=== PATIENT | male | born 1975 | race American Indian/Alaskan Native ===

== ENCOUNTER 2020-07-28 20:35 | Emergency (ER) | payer SELFPAY ==
--- NOTE | 2020-07-29 01:57 | Emergency Department Report ---
- General Chief complaint: Extremity Injury, Upper Stated complaint: RT THUMB INFECTION Time Seen by Provider: 07/29/20 01:52 Source: patient Mode of arrival: Ambulatory Limitations: No Limitations - History of Present Illness Initial comments: The patient was evaluated in the emergency department for symptoms described in the history of present illness. He/she was evaluated in the context of the global COVID-19 pandemic, which necessitated consideration that the patient might be at risk for infection with the virus that causes COVID-19. Institutional protocols and algorithms that pertain to the evaluation of patients at risk for COVID-19 are in a state of rapid change based on information released by regulatory bodies including the CDC and federal and state organizations. These policies and algorithms were followed during the patient's care in the emergency department. Please note that these policies, procedures and recommendations changed on a rapid basis. 45-year-old -[place] male presents to the emergency room for right thumb swelling and pain with drainage x1 week. Patient states his been self I&D with razor. Patient states his been drawing back purulent discharge. Patient states is been taken ibuprofen which he feels does not help and is taking tramadol and he does not like the way it makes him feel. Patient denies any past medical history currently takes no medications besides vitamins and has no primary care provider. - Related Data Previous Rx's Medication Instructions Recorded Last Taken Type Naproxen [Naprosyn] 500 mg PO BID PRN #14 tablet 07/29/20 Unknown Rx cephALEXin [Keflex] 500 mg PO Q12HR 10 Days #20 capsule 07/29/20 Unknown Rx Allergies Allergy/AdvReac Type Severity Reaction Status Date / Time Lanolin Allergy Hives Uncoded 07/28/20 22:45 Abscess Boil HPI - HPI Chief Complaint: Extremity Injury, Upper Stated Complaint: RT THUMB INFECTION Time Seen by Provider: 07/29/20 01:52 Home Medications: Previous Rx's Medication Instructions Recorded Last Taken Type Naproxen [Naprosyn] 500 mg PO BID PRN #14 tablet 07/29/20 Unknown Rx cephALEXin [Keflex] 500 mg PO Q12HR 10 Days #20 capsule 07/29/20 Unknown Rx Allergies/Adverse Reactions: Allergies Allergy/AdvReac Type Severity Reaction Status Date / Time Lanolin Allergy Hives Uncoded 07/28/20 22:45 ED Review of Systems ROS: Stated complaint: RT THUMB INFECTION Other details as noted in HPI Comment: All other systems reviewed and negative ED Past Medical Hx - Past Medical History Previous Medical History?: No - Surgical History Past Surgical History?: No - Social History Smoking Status: Current Every Day Smoker Substance Use Type: Marijuana - Medications Home Medications: Home Medications Medication Instructions Recorded Confirmed Last Taken Type Naproxen [Naprosyn] 500 mg PO BID PRN #14 tablet 07/29/20 Unknown Rx cephALEXin [Keflex] 500 mg PO Q12HR 10 Days #20 capsule 07/29/20 Unknown Rx ED Physical Exam - General Limitations: No Limitations General appearance: alert, in no apparent distress - Head Head exam: Present: atraumatic, normocephalic - Eye Eye exam: Present: normal appearance - ENT ENT exam: Present: mucous membranes moist - Respiratory Respiratory exam: Absent: accessory muscle use - Neurological Exam Neurological exam: Present: alert, oriented X3 - Psychiatric Psychiatric exam: Present: normal affect, normal mood - Expanded Skin Exam Expanded Type of lesion: Present: abscess (That is draining) Distribution of rash: RUE (Lateral thumb cuticle) Description of rash: Present: tenderness, swelling, crusting, fluctuant ED Course Vital Signs 07/28/20 22:37 Temperature 98.0 F Pulse Rate 93 H Respiratory 17 Rate Blood Pressure 111/67 O2 Sat by Pulse 96 Oximetry ED Medical Decision Making - Medical Decision Making 45-year-old -[place] male presents to the emergency room for right thumb swelling and pain with drainage x1 week. Patient states his been self I&D with razor. Patient states his been drawing back purulent discharge. Patient states is been taken ibuprofen which he feels does not help and is taking tramadol and he does not like the way it makes him feel. Patient denies any past medical history currently takes no medications besides vitamins and has no primary care provider. Patient appears to have a paronychia. Patient be placed on Keflex naproxen instructed to do warm Epson salt soaks change bandage every time he washes his hand. Follow-up with a primary care provider. Critical care attestation.: If time is entered above; I have spent that time in minutes in the direct care of this critically ill patient, excluding procedure time. ED Disposition Clinical Impression: Paronychia due to ingrown nail Disposition: - TO HOME OR SELFCARE Is pt being admited?: No Does the pt Need Aspirin: No Condition: Stable Instructions: Paronychia (ED) Additional Instructions: Complete antibiotics as prescribed take pain medication as needed. You to continue with warm Epson salt soaks. Band-Aid to the wound and change 3 times a day. Or after you wash your hands. Follow-up with a primary care provider. Prescriptions: cephALEXin [Keflex] 500 mg PO Q12HR 10 Days #20 capsule Naproxen [Naprosyn] 500 mg PO BID PRN #14 tablet PRN Reason: Pain , Severe (7-10) Referrals: PRIMARY CARE,MD [Primary Care Provider] - 3-5 Days [facility] [Provider Group] - 3-5 Days Forms: Work/School Release Form(ED)
[2020-07-29 02:39] VITALS: BP 118/72
== END 2020-07-29 02:00 | disposition home or self-care (01) ==
LOC: ED 20:35
DX: L03.011 Cellulitis of right finger (principal); F17.200 Nicotine dependence, unspecified, uncomplicated; F12.10 Cannabis abuse, uncomplicated; Z79.899 Other long term (current) drug therapy
CPT/HCPCS: 99282

== ENCOUNTER 2020-08-30 15:36 | Inpatient (IN) | payer OTHER ==
--- NOTE | 2020-08-30 17:33 | Event Note ---
ED Screening Note ED Screening Note: states that he had an abscess to the testicle states it opened and drainage now having pain swelling to groin/buttock states also having dsyuria This initial assessment/diagnostic orders/clinical plan/treatment(s) is/are subject to change based on patients health status, clinical progression and re-assessment by fellow clinical providers in the ED. Further treatment and workup at subsequent clinical providers discretion. Patient/guardian urged not to elope from the ED as their condition may be serious if not clinically assessed and managed. Initial orders include: labs ua CT abd pelvis global compensation analyst: NEO ayala large area of swelling/drainage
[2020-08-30 18:48] LABS: Alanine Aminotransferase 24 units/L (7-56); Albumin 3.7 g/dL (3.9-5); BUN/Creatinine Ratio 16; Blood Urea Nitrogen 14 mg/dL (9-20); Calcium 9.1 mg/dL (8.4-10.2); Hemolysis Index 5
[2020-08-30 18:49] LABS: Basophils # (Auto) 0.1 K/mm3 (0.0-0.1); Basophils % (Auto) 0.5 % (0.0-1.8); Eosinophils # (Auto) 0.5 K/mm3 (0.0-0.4); Eosinophils % (Auto) 3.4 % (0.0-4.3); Hematocrit 46.7 % (35.5-45.6); Hemoglobin 16.1 gm/dl (11.8-15.2); Lymphocytes % (Auto) 12.5 % (13.4-35.0); Mean Corpuscular HGB Conc 34 % (32-34); Mean Corpuscular Volume 98 fl (84-94); Monocytes # (Auto) 1.8 K/mm3 (0.0-0.8); Monocytes % (Auto) 11.2 % (0.0-7.3); Platelet Count 186 K/mm3 (140-440); Red Blood Count 4.77 M/mm3 (3.65-5.03)
[2020-08-30] MEDS ORDERED: ONDANSETRON 4 MG/2 ML INJ IV ONE (18:51)
[2020-08-30] MEDS ORDERED: PIPERACIL/TAZOBACTA 4.5/NS 100 4.5 GM/100 ML VIAL IV ONE (18:51)
[2020-08-30] MEDS ORDERED: MORPHINE 4 MG/1 ML INJ IV ONE (18:51)
--- NOTE | 2020-08-30 19:17 | Emergency Department Report ---
- General Chief complaint: Skin/Abscess/Foreign Body Stated complaint: BURNING URINATION Time Seen by Provider: 08/30/20 19:10 Source: patient Mode of arrival: Ambulatory Limitations: No Limitations - History of Present Illness Initial comments: The patient was evaluated in the emergency department for symptoms described in the history of present illness. He/she was evaluated in the context of the global COVID-19 pandemic, which necessitated consideration that the patient migh t be at risk for infection with the virus that causes COVID-19. Institutional protocols and algorithms that pertain to the evaluation of patients at risk for COVID-19 are in a state of rapid change based on information released by regulatory bodies including the CDC and federal and state organizations. These policies and algorithms were followed during the patient's care in the emergency department. Please note that these policies, procedures and recommendations changed on a rapid basis. 45-year-old -[place] male presents to the emergency room for a 1 week history of a boil on his left testicle that has burst. Patient states that he is having discharge from the boil that has a smell. He also reports his urine is discolored. Patient states he took a naproxen earlier today and did not touch his pain. Patient denies any past medical history does not take any medications on a daily basis and is allergic to lanolin. Patient denies any fever chills no nausea no vomiting. No chest pain shortness of breath abdominal pain. - Related Data Previous Rx's Medication Instructions Recorded Last Taken Type Naproxen [Naprosyn] 500 mg PO BID PRN #14 tablet 07/29/20 Unknown Rx cephALEXin [Keflex] 500 mg PO Q12HR 10 Days #20 capsule 07/29/20 Unknown Rx Allergies Allergy/AdvReac Type Severity Reaction Status Date / Time Lanolin Allergy Hives Uncoded 08/30/20 16:20 Abscess Boil HPI - HPI Chief Complaint: Skin/Abscess/Foreign Body Stated Complaint: BURNING URINATION Time Seen by Provider: 08/30/20 19:10 Home Medications: Previous Rx's Medication Instructions Recorded Last Taken Type Naproxen [Naprosyn] 500 mg PO BID PRN #14 tablet 07/29/20 Unknown Rx cephALEXin [Keflex] 500 mg PO Q12HR 10 Days #20 capsule 07/29/20 Unknown Rx Allergies/Adverse Reactions: Allergies Allergy/AdvReac Type Severity Reaction Status Date / Time Lanolin Allergy Hives Uncoded 08/30/20 16:20 ED Review of Systems ROS: Stated complaint: BURNING URINATION Other details as noted in HPI Comment: All other systems reviewed and negative ED Past Medical Hx - Past Medical History Previous Medical History?: No - Surgical History Past Surgical History?: No - Social History Smoking Status: Current Every Day Smoker Substance Use Type: None - Medications Home Medications: Home Medications Medication Instructions Recorded Confirmed Last Taken Type Naproxen [Naprosyn] 500 mg PO BID PRN #14 tablet 07/29/20 Unknown Rx cephALEXin [Keflex] 500 mg PO Q12HR 10 Days #20 capsule 07/29/20 Unknown Rx ED Physical Exam - General Limitations: No Limitations General appearance: alert, in distress, other (Tearful) - Head Head exam: Present: atraumatic, normocephalic - Eye Eye exam: Present: normal appearance - ENT ENT exam: Present: mucous membranes moist - Neck Neck exam: Present: normal inspection, full ROM - Respiratory Respiratory exam: Present: normal lung sounds bilaterally. Absent: accessory muscle use - Cardiovascular Cardiovascular Exam: Present: regular rate, normal rhythm. Absent: systolic m urmur, diastolic murmur, rubs, gallop - exam: Present: testicular tenderness External exam: Present: erythema, swelling, other (Indurated tenderness to touch) - Extremities Exam Extremities exam: Present: normal inspection, full ROM - Back Exam Back exam: Present: normal inspection - Neurological Exam Neurological exam: Present: alert, oriented X3 - Psychiatric Psychiatric exam: Present: normal affect, normal mood - Skin Skin exam: Present: warm, dry, intact, normal color. Absent: rash ED Course Vital Signs 08/30/20 08/30/20 16:22 17:30 Temperature 98.3 F Pulse Rate 116 H 108 H Respiratory 18 18 Rate Blood Pressure 125/86 O2 Sat by Pulse 98 99 Oximetry - Reevaluation(s) Reevaluation #1: 08/30/20 20:32 Requested surgery to be paged - Consultations Consultation #1: 08/30/20 20:[address] 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 Surgery request patient be placed on Flagyl admit and she will consult in the morning. ED Medical Decision Making - Lab Data Result diagrams: 08/30/20 18:07 08/30/20 18:07 - Radiology Data Radiology results: report reviewed Patient: LI SILVA MR#: [id number] : 1975 Acct:[id number] Age/Sex: 45 / M ADM Date: 08/30/20 Loc: ED Attending Dr: Ordering Physician: PARESH KABA Date of Service: 08/30/20 Procedure(s): CT abdomen pelvis w con Accession Number(s): [id number] cc: PARESH KABA CT ABDOMEN AND PELVIS WITH CONTRAST INDICATION: left groin and buttock swelling/drainage. TECHNIQUE: Axial CT images were obtained through the abdomen and pelvis after 100 cc Omni [address] scans at this location are performed using CT dose reduction for ALARA by means of automated exposure control. COMPARISON: None available. FINDINGS: LOWER CHEST: 12 mm solid subpleural right lower lobe pulmonary nodule with tiny peripheral calcification LIVER: No significant abnormality. GALLBLADDER: No significant abnormality. BILE DUCTS: No significant abnormality. PANCREAS: No significant abnormality. SPLEEN: No significant abnormality. ADRENALS: No significant abnormality. RIGHT KIDNEY and URETER: No significant abnormality. LEFT KIDNEY and URETER: No significant abnormality. STOMACH and SMALL BOWEL: No significant abnormality. COLON: No significant abnormality. APPENDIX: No significant abnormality. PERITONEUM: No free fluid. No free air. No fluid collection. LYMPH NODES: No significant adenopathy. AORTA and ARTERIES: No significant abnormality. IVC and VEINS: No significant abnormality. URINARY BLADDER: No significant abnormality. REPRODUCTIVE ORGANS: No significant abnormality. ADDITIONAL FINDINGS: Small amount of linear subcutaneous gas left ischiorectal fossa extending into left scrotum could represent early César's gangrene or perianal fistula. SKELETAL SYSTEM: No significant abnormality. IMPRESSION: 1. 12 mm right lower lobe incidental pulmonary nodule 2. Linear gas left issue rectal fossa could represent perianal fistula versus less likely early César's gangrene. No CT evidence for proctitis Signer Name: Petey Mtz MD Signed: 08/30/2020 7:59 PM Workstation Name: [id number] Transcribed By: Dictated By: Petey Mtz MD Electronically Authenticated By: Petey Mtz MD Signed Date/Time: 11/20/20 1959 - Medical Decision Making 45-year-old -[place] male presents to the emergency room for a 1 week history of a boil on his left testicle that has burst. Patient states that he is having discharge from the boil that has a smell. He also reports his urine is discolored. Patient states he took a naproxen earlier today and did not touch his pain. Patient denies any past medical history does not take any medications on a daily basis and is allergic to lanolin. Patient denies any fever chills no nausea no vomiting. No chest pain shortness of breath abdominal pain. CBC, CMP, CT pelvis with contrast, urinalysis, morphine 4 mg, Zofran 4 mg IV and Unasyn has been ordered. Exam chaperoned by skiver machine operator Ferdinand Critical care attestation.: If time is entered above; I have spent that time in minutes in the direct care of this critically ill patient, excluding procedure time. ED Disposition Condition: Stable
--- NOTE | 2020-08-30 20:03 | Cat Scan Report ---
CT ABDOMEN AND PELVIS WITH CONTRAST INDICATION: left groin and buttock swelling/drainage. TECHNIQUE: Axial CT images were obtained through the abdomen and pelvis after 100 cc Omni [address] scans at this location are performed using CT dose reduction for ALARA by means of automated expos ure control. COMPARISON: None available. FINDINGS: LOWER CHEST: 12 mm solid subpleural right lower lobe pulmonary nodule with tiny peripheral calcificat ion LIVER: No significant abnormality. GALLBLADDER: No significant abnormality. BILE DUCTS: No significant abnormality. PANCREAS: No significant abnormality. SPLEEN: No significant abnormality. ADRENALS: No significant abnormality. RIGHT KIDNEY and URETER: No significant abnormality. LEFT KIDNEY and URETER: No significant abnormality. STOMACH and SMALL BOWEL: No significant abnormality. COLON: No significant abnormality. APPENDIX: No significant abnormality. PERITONEUM: No free fluid. No free air. No fluid collection. LYMPH NODES: No significant adenopathy. AORTA and ARTERIES: No significant abnormality. IVC and VEINS: No significant abnormality. URINARY BLADDER: No significant abnormality. REPRODUCTIVE ORGANS: No significant abnormality. ADDITIONAL FINDINGS: Small amount of linear subcutaneous gas left ischiorectal fossa extending into l eft scrotum could represent early Wilman's gangrene or perianal fistula. SKELETAL SYSTEM: No significant abnormality. IMPRESSION: 1. 12 mm right lower lobe incidental pulmonary nodule 2. Linear gas left issue rectal fossa could represent perianal fistula versus less likely early Fourn ier's gangrene. No CT evidence for proctitis Signer Name: Petey Mtz MD Signed: 08/30/2020 7:59 PM Workstation Name: [id number]
[2020-08-30] MEDS ORDERED: SODIUM CHLORIDE 0.9% 1000 ML 2,000 ML IV ONE (20:40)
[2020-08-30] MEDS ORDERED: metroNIDAZOLE/NS 500 MG/100 ML 500 MG/100 ML BAG IV ONE (20:41)
[2020-08-31] MEDS ORDERED: ACETAMINOPHEN 325 MG TAB PO PRN
[2020-08-31] MEDS ORDERED: ONDANSETRON 4 MG/2 ML INJ IV PRN
[2020-08-31 01:49] LABS: Bilirubin,Urine NEG (Negative); Blood,Urine NEG (Negative); Color,Urine Yellow (Yellow)
[2020-08-31] MEDS: MORPHINE 2 MG/1 ML INJ IV PRN (03:12)
--- NOTE | 2020-08-31 05:35 | History and Physical Report ---
History of Present Illness Date of examination: 08/30/20 Date of admission: 08/30/20 23:58 Chief complaint: 45 year old male with no significant Past Medical History presenting with 1 week history of scrotal boil and swelling that eventually bursted and started draining fluid and there was associated pain. There was no history of trauma or insect bite, there was also no history of fever or chills , shortness of breath or dizziness. Past History Past Surgical History: No surgical history Social history: no significant social history Family history: no significant family history Medications and Allergies Allergies Allergy/AdvReac Type Severity Reaction Status Date / Time Lanolin Allergy Hives Uncoded 08/30/20 16:20 Home Medications Medication Instructions Recorded Confirmed Last Taken Type Naproxen [Naprosyn] 500 mg PO BID PRN #14 tablet 07/29/20 08/31/20 Unknown Rx cephALEXin [Keflex] 500 mg PO Q12HR 10 Days #20 capsule 07/29/20 08/31/20 Unknown Rx Active Meds: Active Medications Acetaminophen (Tylenol) 650 mg PO Q4H PRN PRN Reason: Pain, Mild (1-3) Piperacillin Sod/Tazobactam Sod (Zosyn/Ns 4.5gm/100ml) 4.5 gm in 100 mls @ 200 mls/hr IV Q8HR ANT; Protocol Morphine Sulfate (Morphine) 2 mg IV Q3H PRN PRN Reason: Pain, Moderate (4-6) Last Admin: 08/31/20 03:12 Dose: 2 mg Documented by: Ondansetron HCl (Zofran) 4 mg IV Q8H PRN PRN Reason: Nausea And Vomiting Review of Systems Constitutional: no fever, no chills, no weakness Eyes: bilateral: other (no bilateral eye symptoms) Cardiovascular: no chest pain, no palpitations, no lightheadedness, no shortness of breath Respiratory: no cough, no shortness of breath Gastrointestinal: no abdominal pain, no nausea, no vomiting, no diarrhea, no constipation Genitourinary Male: discharge, genital pain, genital sores, testicular pain, no dysuria, no hematuria, no flank pain, no urinary frequency, no urinary hesitancy, no nocturia, no incontinence, no erectile dysfunction, no urinary retention Rectal: no pain, no itching Integumentary: redness, sores, boils, no rash, no pruritis, no wounds, no blisters, no lesions, no darkening of skin, no depigmentation Neurological: no paralysis, no weakness Psychiatric: no anxiety Endocrine: no polyuria, no nocturia Hematologic/Lymphatic: no easy bruising, no lymphadenopathy Allergic/Immunologic: no anaphylaxis Exam - Constitutional Vitals: Temp Pulse Resp BP Pulse Ox 98.7 F 96 H 18 118/72 99 08/31/20 02:30 08/31/20 02:30 08/31/20 02:30 08/31/20 02:30 08/31/20 03:28 General appearance: Present: mild distress - EENT Eyes: Present: PERRL, EOM intact ENT: hearing intact, clear oral mucosa, dentition normal - Neck Neck: Present: supple, normal ROM - Respiratory Respiratory effort: normal - Cardiovascular Rhythm: regular Heart Sounds: Present: S1 & S2. Absent: gallop, systolic murmur, diastolic murmur - Extremities Extremities: no ischemia, No edema - Abdominal General gastrointestinal: Present: soft, non-tender, non-distended. Absent: tender, distended, rigid, mass Male genitourinary: Present: tender, scrotal edema - Rectal Rectal Exam: deferred - Integumentary Integumentary: Present: clear, warm, dry, erythema - Musculoskeletal Musculoskeletal: strength equal bilaterally - Psychiatric Psychiatric: appropriate mood/affect HEART Score - HEART Score Risk factors: 1-2 risk factors Troponin: < normal limit - Critical Actions Critical Actions: 0-3 pts:0.9-1.7%risk of adverse cardiac event.Candidate for discharge Results - Labs CBC & Chem 7: 08/30/20 18:07 08/30/20 18:07 Labs: Laboratory Last Values WBC 16.0 K/mm3 (4.5-11.0) H 08/30/20 18:07 RBC 4.77 M/mm3 (3.65-5.03) 08/30/20 18:07 Hgb 16.1 gm/dl (11.8-15.2) H 08/30/20 18:07 Hct 46.7 % (35.5-45.6) H 08/30/20 18:07 MCV 98 fl (84-94) H 08/30/20 18:07 MCH 34 pg (28-32) H 08/30/20 18:07 MCHC 34 % (32-34) 08/30/20 18:07 RDW 14.0 % (13.2-15.2) 08/30/20 18:07 Plt Count 186 K/mm3 (140-440) 08/30/20 18:07 Lymph % (Auto) 12.5 % (13.4-35.0) L 08/30/20 18:07 [place] % (Auto) 11.2 % (0.0-7.3) H 08/30/20 18:07 Eos % (Auto) 3.4 % (0.0-4.3) 08/30/20 18:07 Baso % (Auto) 0.5 % (0.0-1.8) 08/30/20 18:07 Lymph # (Auto) 2.0 K/mm3 (1.2-5.4) 08/30/20 18:07 [place] # (Auto) 1.8 K/mm3 (0.0-0.8) H 08/30/20 18:07 Eos # (Auto) 0.5 K/mm3 (0.0-0.4) H 08/30/20 18:07 Baso # (Auto) 0.1 K/mm3 (0.0-0.1) 08/30/20 18:07 Seg Neutrophils % 72.4 % (40.0-70.0) H 08/30/20 18:07 Seg Neutrophils # 11.6 K/mm3 (1.8-7.7) H 08/30/20 18:07 Sodium 136 mmol/L (137-145) L 08/30/20 18:07 Potassium 3.6 mmol/L (3.6-5.0) 08/30/20 18:07 Chloride 100.9 mmol/L (98-107) 08/30/20 18:07 Carbon Dioxide 28 mmol/L (22-30) 08/30/20 18:07 Anion Gap 11 mmol/L 08/30/20 18:07 BUN 14 mg/dL (9-20) 08/30/20 18:07 Creatinine 0.9 mg/dL (0.8-1.3) 08/30/20 18:07 Estimated GFR > 60 ml/min 08/30/20 18:07 BUN/Creatinine Ratio 16 % 08/30/20 18:07 Glucose 95 mg/dL (75-100) 08/30/20 18:07 Calcium 9.1 mg/dL (8.4-10.2) 08/30/20 18:07 Total Bilirubin 0.60 mg/dL (0.1-1.2) 08/30/20 18:07 AST 19 units/L (5-40) 08/30/20 18:07 ALT 24 units/L (7-56) 08/30/20 18:07 Alkaline Phosphatase 60 units/L (35-129) 08/30/20 18:07 Total Protein 7.8 g/dL (6.3-8.2) 08/30/20 18:07 Albumin 3.7 g/dL (3.9-5) L 08/30/20 18:07 Albumin/Globulin Ratio 0.9 % 08/30/20 18:07 Urine Color Yellow (Yellow) 08/30/20 Unknown Urine Turbidity Clear (Clear) 08/30/20 Unknown Urine pH 5.0 (5.0-7.0) 08/30/20 Unknown Ur Specific [place] 1.008 (1.003-1.030) 08/30/20 Unknown Urine Protein 30 mg/dl mg/dL (Negative) 08/30/20 Unknown Urine Glucose (UA) Neg mg/dL (Negative) 08/30/20 Unknown Urine Ketones Neg mg/dL (Negative) 08/30/20 Unknown Urine Blood Neg (Negative) 08/30/20 Unknown Urine Nitrite Neg (Negative) 08/30/20 Unknown Urine Bilirubin Neg (Negative) 08/30/20 Unknown Urine Urobilinogen 2.0 mg/dL (<2.0) 08/30/20 Unknown Ur Leukocyte Esterase Neg (Negative) 08/30/20 Unknown Urine WBC (Auto) 1.0 /HPF (0.0-6.0) 08/30/20 Unknown Urine RBC (Auto) 3.0 /HPF (0.0-6.0) 08/30/20 Unknown U Epithel Cells (Auto) < 1.0 /HPF (0-13.0) 08/30/20 Unknown Rod/IV: Voiding Method Urinal IV Catheter Type [Left Distal INT / [place] Antecubital] Assessment and Plan - Patient Problems (1) Scrotal abscess Current Visit: Yes Status: Acute Plan to address problem: 1. I.V Zosyn Antibiotic 2. I.V Morphine for pain 3. I.V Zofran for Nausea and Vomiting 4. Surgical consult for I&D 5. Tylenol PRN fever (2) Perianal fistula Current Visit: Yes Status: Acute Plan to address problem: 1. Surgical consult
[2020-08-31] MEDS: PIPERACIL/TAZOBACTA 4.5/NS 100 4.5 GM/100 ML VIAL IV SCH ×3 (05:56→21:32)
[2020-08-31] MEDS ORDERED: PIPERACILLIN/TAZOBACTAM 3.375 3.375 GM/50 ML BAG IV SCH (06:00)
[2020-08-31] MEDS ORDERED: VANCOMYCIN PHARMACY TO DOSE IV SCH (08:00)
--- NOTE | 2020-08-31 11:12 | Event Note ---
Date: 08/31/20 Patient seen and examined. 45-year-old 1 week of scrotal swelling. Associated pain low-grade fever. Patient states he had 2 nodules there 1 day burst with some serosanguineous drainage. Patient admitted brought placed on Zosyn for broad-spectrum antibiotics. Aggressive pain control elevation of scrotum surgical consult. 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 Otherwise unremarkable. Now on IV antibiotics evaluation for possible I&D.
[2020-08-31] MEDS: VANCOMYCIN 2,000 MG in SODIUM CHLORIDE 0.9% 500 ML 500 ML IV SCH ×2 (12:30→22:58)
--- NOTE | 2020-08-31 13:05 | Consultation ---
History of Present Illness Consult date: 08/31/20 Reason for consult: other (left groin abscess) - History of present illness History of present illness: 45 year old male who presented to the ED with a several day hx of a bump on his left testicle / groin that worsened in pain and burst about two nights ago. It was draining foul smelling fluid. He denies having this before, and does not recall any insect bite or trauma. He had a CT scan that showed inflammation in the left groin, with small amount of linear air in the left ischio/rectal fossa. He says that the pain is bit improved compared to yesterday, and denies any pain in his rectum or difficulty having a bowel movement. Past History Past Medical History: No medical history Past Surgical History: No surgical history Social history: smoking (smokes at least a pack of cigarettes a day) Family history: no significant family history Medications and Allergies Allergies Allergy/AdvReac Type Severity Reaction Status Date / Time Lanolin Allergy Hives Uncoded 08/30/20 16:20 Home Medications Medication Instructions Recorded Confirmed Last Taken Type Naproxen [Naprosyn] 500 mg PO BID PRN #14 tablet 07/29/20 08/31/20 Unknown Rx cephALEXin [Keflex] 500 mg PO Q12HR 10 Days #20 capsule 07/29/20 08/31/20 Unknown Rx Active Meds: Active Medications Acetaminophen (Tylenol) 650 mg PO Q4H PRN PRN Reason: Pain, Mild (1-3) Piperacillin Sod/Tazobactam Sod (Zosyn/Ns 4.5gm/100ml) 4.5 gm in 100 mls @ 200 mls/hr IV Q8HR ANT; Protocol Last Admin: 08/31/20 05:56 Dose: 200 mls/hr Documented by: Vancomycin HCl 2,000 mg/ (Sodium Chloride) 540 mls @ 250 mls/hr IV Q12HR ANT Morphine Sulfate (Morphine) 2 mg IV Q3H PRN PRN Reason: Pain, Moderate (4-6) Last Admin: 08/31/20 03:12 Dose: 2 mg Documented by: Ondansetron HCl (Zofran) 4 mg IV Q8H PRN PRN Reason: Nausea And Vomiting Review of Systems - Constitutional no weight loss, no poor appetite - Cardiovascular no chest pain - Respiratory no cough - Gastrointestinal no abdominal pain, no nausea, no vomiting - Genitourinary no dysuria - Integumentary boils Exam Vital Signs Temp Pulse Resp BP Pulse Ox 98.3 F 116 H 18 125/86 98 08/30/20 16:22 08/30/20 16:22 08/30/20 16:22 08/30/20 16:22 08/30/20 16:22 - General physical appearance Positive: well developed, no distress, no pain, obese - Respiratory Positive: normal expansion, normal respiratory effort - Cardiovascular Heart Sounds: Present: S1 & S2 - Extremities Extremities: no ischemia - Abdomen Abdomen: Present: soft. Absent: tender, rebound, guarding - Genitourinary Male Genitourinary: left inguinal lymphadenopathy (left groin with two small skin defects draining foul smelling purulent fluid. tender to palpation with tenderness also in the left pubic area, and enduration in the left inner thigh. no significant skin changes.) Results - Labs 08/30/20 18:07 08/30/20 18:07 Abnormal lab results 08/30/20 08/30/20 Range/Units 18:07 18:07 WBC 16.0 H (4.5-11.0) K/mm3 Hgb 16.1 H (11.8-15.2) gm/dl Hct 46.7 H (35.5-45.6) % MCV 98 H (84-94) fl MCH 34 H (28-32) pg Lymph % (Auto) 12.5 L (13.4-35.0) % [place] % (Auto) 11.2 H (0.0-7.3) % [place] # (Auto) 1.8 H (0.0-0.8) K/mm3 Eos # (Auto) 0.5 H (0.0-0.4) K/mm3 Seg Neutrophils % 72.4 H (40.0-70.0) % Seg Neutrophils # 11.6 H (1.8-7.7) K/mm3 Sodium 136 L (137-145) mmol/L Albumin 3.7 L (3.9-5) g/dL Diabetes panel 08/30/20 Range/Units 18:07 Sodium 136 L (137-145) mmol/L Potassium 3.6 (3.6-5.0) mmol/L Chloride 100.9 (98-107) mmol/L Carbon Dioxide 28 (22-30) mmol/L BUN 14 (9-20) mg/dL Creatinine 0.9 (0.8-1.3) mg/dL Glucose 95 (75-100) mg/dL Calcium 9.1 (8.4-10.2) mg/dL AST 19 (5-40) units/L ALT 24 (7-56) units/L Alkaline Phosphatase 60 (35-129) units/L Total Protein 7.8 (6.3-8.2) g/dL Albumin 3.7 L (3.9-5) g/dL Calcium panel 08/30/20 Range/Units 18:07 Calcium 9.1 (8.4-10.2) mg/dL Albumin 3.7 L (3.9-5) g/dL Pituitary panel 08/30/20 Range/Units 18:07 Sodium 136 L (137-145) mmol/L Potassium 3.6 (3.6-5.0) mmol/L Chloride 100.9 (98-107) mmol/L Carbon Dioxide 28 (22-30) mmol/L BUN 14 (9-20) mg/dL Creatinine 0.9 (0.8-1.3) mg/dL Glucose 95 (75-100) mg/dL Calcium 9.1 (8.4-10.2) mg/dL Adrenal panel 08/30/20 Range/Units 18:07 Sodium 136 L (137-145) mmol/L Potassium 3.6 (3.6-5.0) mmol/L Chloride 100.9 (98-107) mmol/L Carbon Dioxide 28 (22-30) mmol/L BUN 14 (9-20) mg/dL Creatinine 0.9 (0.8-1.3) mg/dL Glucose 95 (75-100) mg/dL Calcium 9.1 (8.4-10.2) mg/dL Total Bilirubin 0.60 (0.1-1.2) mg/dL AST 19 (5-40) units/L ALT 24 (7-56) units/L Alkaline Phosphatase 60 (35-129) units/L Total Protein 7.8 (6.3-8.2) g/dL Albumin 3.7 L (3.9-5) g/dL - Imaging CT scan - abdomen: report reviewed, image reviewed CT scan - pelvis: report reviewed, image reviewed Assessment and Plan 45 year old male with an abscess in his left groin actively draining. stable and afebrile with leukocytosis. clinically inconsistent with forniers gangrene. Continue abx, and will take to OR today for I&D of left groin with wound exploration. Pt signed consent and expressed understanding of the risks and benefits.
[2020-08-31 13:25] LABS: Basophils % (Auto) 0.4 % (0.0-1.8); Eosinophils # (Auto) 0.8 K/mm3 (0.0-0.4); Eosinophils % (Auto) 6.9 % (0.0-4.3); Hematocrit 42.9 % (35.5-45.6); Hemoglobin 14.5 gm/dl (11.8-15.2); Lymphocytes # (Auto) 1.9 K/mm3 (1.2-5.4); Lymphocytes % (Auto) 16.5 % (13.4-35.0); Mean Corpuscular HGB Conc 34 % (32-34); Mean Corpuscular Volume 98 fl (84-94); Monocytes # (Auto) 1.4 K/mm3 (0.0-0.8); Monocytes % (Auto) 11.6 % (0.0-7.3); Platelet Count 175 K/mm3 (140-440); Red Blood Count 4.39 M/mm3 (3.65-5.03)
--- NOTE | 2020-08-31 15:25 | Anesthesia Consultation ---
Anesthesia Consult and Med Hx Date of service: 08/31/20 - Airway Anesthetic Teeth Evaluation: Good ROM Head & Neck: Adequate Mental/Hyoid Distance: Adequate Mallampati Class: Class II Intubation Access Assessment: Probably Good - Pulmonary Exam CTA: Yes - Pre-Operative Health Status ASA Pre-Surgery Classification: ASA2, Emergency Proposed Anesthetic Plan: General - Pulmonary Hx Smoking: Yes Hx Respiratory Symptoms: No COPD: No Hx Pneumonia: No - Cardiovascular System Hx Hypertension: No Hx Heart Attack/AMI: No Hx Angina: No Hx Pacemaker: No - Central Nervous System Hx Neuromuscular Disorder: No Hx Seizures: No CVA: No - Gastrointestinal Hx Ulcer: Yes - Endocrine Hx Renal Disease: No Hx Liver Disease: No Hx Insulin Dependent Diabetes: No Hx Non-Insulin Dependent Diabetes: No Hx Thyroid Disease: No - Hematic Hx Anemia: No Hx Sickle Cell Disease: No - Other Systems Hx Alcohol Use: Yes (Occasionally) Hx Substance Use: Yes (Marijuana) Hx Cancer: No Hx Obesity: Yes (BMI 38.1) - Additional Comments Anesthesia Medical History Comments: Patient denied previous anesthesia complication
--- NOTE | 2020-08-31 15:26 | Anesthesia Day of Surgery ---
Anesthesia Day of Surgery - Day of Surgery Patient Examined: Yes Patient H&P Reviewed: Yes Patient is NPO: Yes Beta Blockers: No Cardiac Clearance: No Pulmonary Clearance: No
[2020-08-31] MEDS ORDERED: dexAMETHasone 20 MG/5 ML VIAL ONE (15:31)
[2020-08-31] MEDS ORDERED: ONDANSETRON 4 MG/2 ML INJ ONE (15:31)
[2020-08-31] MEDS ORDERED: propofoL 200 MG/20 ML VIAL IV ONE (15:31)
[2020-08-31] MEDS ORDERED: HYDROmorphone 1 MG/1 ML INJ ONE ×2 (15:31→16:05)
[2020-08-31] MEDS ORDERED: LIDOCAINE MPF (2%) 20 MG/1 ML VIAL 5 ML ONE (15:31)
[2020-08-31] MEDS ORDERED: LACTATED RINGERS 1,000 ML ONE ×2 (15:41→17:00)
[2020-08-31] MEDS ORDERED: MIDAZOLAM 2 MG/2 ML INJ ONE (15:42)
[2020-08-31] MEDS ORDERED: LIDOCAINE (1%) 10 MG/1 ML VIAL 20 ML MDV ONE (16:03)
[2020-08-31] MEDS ORDERED: BUPIVACAINE-EPINEPHRINE/PF 0.5%-1:200,000 (10 ML) VIAL INFILTRATI ONE ×2 (16:03→16:42)
[2020-08-31] MEDS ORDERED: HYDROGEN PEROXIDE 118 ML SOLUTION ONE (16:09)
[2020-08-31] MEDS ORDERED: KETOROLAC 30 MG/1 ML INJ ONE (16:19)
[2020-08-31] MEDS ORDERED: LIDOCAINE (1%) 10 MG/1 ML VIAL 20 ML MDV INFILTRATI ONE (16:43)
[2020-08-31] MEDS ORDERED: HYDROGEN PEROXIDE 118 ML SOLUTION IRRIGATION ONE (16:43)
[2020-08-31] MEDS ORDERED: SODIUM CHLORIDE 0.9% IRR 1,500 ML BOTTLE IR ONE (16:44)
--- NOTE | 2020-08-31 17:09 | Operative Report ---
Operative Report Operative Report: Date: August 31, 2020 Surgeon: Nery Vela MD Procedure: Incision and drainage of left groin abscess Anesthesia: General with LMA Pre-Op diagnosis: Left groin abscess Postop diagnosis: Same as preop Indication: Patient is a 45-year-old male who presented to the emergency room with a several day history of worsening left groin pain and swelling by his left testicle. 1 to 2 days ago, he noticed that the area started draining foul- smelling fluid. Patient presented to the emergency room where a CT scan was performed and showed air in the ischio rectal fossa. Details of procedure: Patient was taken to the operating room and placed in supine position. General anesthesia was induced via successful LMA placement. Preoperative antibiotics were already given when the patient was on the floor. Patient was placed in bilateral frog position. His left groin leg and lower abdomen were prepped and draped in sterile fashion. After a timeout, local anesthesia using 50-50 Marcaine lidocaine was infused in the area. There was noted to be 2 punctate skin openings in his left groin that were draining foul- smelling fluid. This area was incised to connect the openings, and make the opening larger. The wound cavity was then examined with digital manipulation, and was noted to tract going posteriorly towards his left buttock about 2 to 3 inches. There was minimal extension of the tunnel superior. Aerobic and anaerobic cultures were taken. The posterior tunnel was noted to have more pur ulent material. The inside the tunnel was examined and all tissues were found to be viable without any signs of gross necrosis. The tunnel was traced and examined, along with a digital rectal exam and no connection was appreciated. The cavity was then irrigated with a combination of normal saline and peroxide, followed by Betadine. Hemostasis was achieved at the skin level electrocautery. The cavity was then packed with half-inch iodoform gauze, followed by dressing. Patient was awoken, LMA removed, and taken to recovery stable condition. Findings: Left groin abscess with extension to the left buttock with no signs of gangrene. Specimen: Aerobic anaerobic culture sent to pathology Complications: None immediate
[2020-08-31] MEDS ORDERED: SODIUM CHLORIDE 0.45% 1000 ML 1,000 ML IV SCH (19:56)
[2020-08-31] MEDS: oxyCODONE /ACETAMINOPHEN 5-325MG TAB PO PRN (21:36)
--- NOTE | 2020-09-01 00:08 | Post Anesthesia Evaluation ---
- Post Anesthesia Evaluation Patient Participated: Yes Airway Patent: Yes Stable Respiratory Function: Yes Nausea/Vomiting: No Temp > 96.8F: Yes Pain Manageable: Yes Adequeate Hydration: Yes Anesthesia Complications: No Block Receding Appropriately: Not Applicable Patient on Ventilator: No
[2020-09-01] MEDS: PIPERACIL/TAZOBACTA 4.5/NS 100 4.5 GM/100 ML VIAL IV SCH (05:54)
[2020-09-01] MEDS: oxyCODONE /ACETAMINOPHEN 5-325MG TAB PO PRN ×2 (05:54→12:10)
[2020-09-01 08:27] LABS: Basophils % (Auto) 0.2 % (0.0-1.8); Eosinophils % (Auto) 0.2 % (0.0-4.3); Hematocrit 43.8 % (35.5-45.6); Hemoglobin 14.7 gm/dl (11.8-15.2); Lymphocytes # (Auto) 1.4 K/mm3 (1.2-5.4); Lymphocytes % (Auto) 11.8 % (13.4-35.0); Mean Corpuscular HGB Conc 34 % (32-34); Mean Corpuscular Volume 98 fl (84-94); Monocytes # (Auto) 0.9 K/mm3 (0.0-0.8); Monocytes % (Auto) 7.6 % (0.0-7.3); Platelet Count 185 K/mm3 (140-440); Red Blood Count 4.47 M/mm3 (3.65-5.03)
[2020-09-01] MEDS: MORPHINE 2 MG/1 ML INJ IV PRN (09:39)
[2020-09-01] MEDS: VANCOMYCIN 2,000 MG in SODIUM CHLORIDE 0.9% 500 ML 500 ML IV SCH (10:04)
[2020-09-01 11:49] VITALS: BP 100/47
--- NOTE | 2020-09-01 14:04 | Progress Note ---
Assessment and Plan POD#1 s/p incision and drainage of left groin abscess. Afebrile and stable. Wound was re-packed. Pt is ok to be discharged to home. I spoke to the patient's who has done wound care in the past and is comfortable with the daily dres sing changes. will discharge on percocet and levaquin. pt may shower. no bathing in still water. pt is to call my office [phone] to make an appointment to see me in two weeks for follow up. Will follow up on cultures. Subjective Date of service: 09/01/20 Patient Reports: Positive: feels better (Pt says he is having less pain than before surgery. No acute events over night.), still having pain Objective Vital Signs - 12hr 09/01/20 09/01/20 09/01/20 04:48 07:16 11:00 Temperature 97.9 F 97.9 F 97.1 F L Pulse Rate 77 81 72 Respiratory 18 20 18 Rate Blood Pressure 123/60 103/54 Blood Pressure 100/47 [Right] O2 Sat by Pulse 94 97 96 Oximetry - General physical appearance well developed, no pain, obese - Respiratory normal expansion, normal respiratory effort - Genitourinary other (packing removed. no drainage or foul odor. appropriatley tender to palpation. ) - Labs 09/01/20 07:47 08/30/20 18:07
--- NOTE | 2020-09-01 14:42 | Discharge Summary ---
Providers - Providers Date of Admission: 08/30/20 23:58 Date of discharge: 09/01/20 Attending physician: CAS HARRISON 08/30/20 20:44 Consult to Physician [CONS] Urgent Comment: Consulting Provider: ACOSTA BERG Physician Instructions: Reason For Exam: Early césar's gangrene Primary care physician: SUPERVISOR FELTING Hospitalization Condition: Stable Disposition: DC-01 TO HOME OR SELFCARE - Discharge Diagnoses (1) Perianal fistula Status: Acute Comment: Status post surgical correction discharged home Levaquin pain control. (2) Scrotal abscess Status: Acute Comment: Discharged home Levaquin and pain control. Follow-up with surgeon in 2 weeks. Core Measure Documentation - Palliative Care Palliative Care/ Comfort Measures: Not Applicable - Core Measures Any of the following diagnoses?: none Exam - Constitutional Vitals: Temp Pulse Resp BP Pulse Ox 97.1 F L 72 18 100/47 96 09/01/20 11:00 09/01/20 11:00 09/01/20 11:00 09/01/20 11:00 09/01/20 11:00 General appearance: Present: no acute distress, well-nourished - EENT Eyes: Present: PERRL ENT: hearing intact, clear oral mucosa - Neck Neck: Present: supple, normal ROM - Respiratory Respiratory effort: normal Respiratory: bilateral: CTA - Cardiovascular Heart Sounds: Present: S1 & S2. Absent: rub, click - Extremities Extremities: pulses symmetrical, No edema Peripheral Pulses: within normal limits - Abdominal General gastrointestinal: Present: soft, non-tender, non-distended, normal bowel sounds Male genitourinary: Present: normal - Integumentary Integumentary: Present: clear, warm, dry - Musculoskeletal Musculoskeletal: gait normal, strength equal bilaterally - Psychiatric Psychiatric: appropriate mood/affect, intact judgment & insight - Neurologic Neurologic: CNII-XII intact, moves all extremities Plan Activity: other (Provide dressing as described in wound packing described to .) Diet: low cholesterol, diabetic Follow up with: PRIMARY CARE, [Primary Care Provider] - 7 Days Prescriptions: levoFLOXacin [Levaquin] 750 mg PO QDAY #10 tablet Oxycodone HCl/Acetaminophen [Percocet 7.5/325 mg] 1 each PO Q12H PRN 10 Days #20 tablet PRN Reason: Pain
[2020-09-01] MEDS ORDERED: AMOXICILLIN/K CLAV 875/125MG TAB PO SCH (15:00)
== END 2020-09-01 15:45 | disposition home or self-care (01) | DRG 358 ==
LOC: ED 15:36 → OBSVTOIN 23:58 → 3B-SURG 23:58
PROVIDERS: ADMIT Internal Medicine; ATTEND Internal Medicine
PROC: 0Y960ZZ Drainage of Left Inguinal Region, Open Approach (ICD-10-PCS; principal; 2020-08-31)
DX: K60.3 Anal fistula (principal); N49.2 Inflammatory disorders of scrotum; F17.210 Nicotine dependence, cigarettes, uncomplicated; Z88.8 Allergy status to other drugs, medicaments and biological substances
CPT/HCPCS: 36415; 74177; 80053; 81001; 85025; 87075; 87116; 87591; 90471; 96365; 96366; 96375; G0378; J1100; J1170; J1885; J2250; J2270; J2405; J2543; J2704; J3370; J7030; J7040; J7120; Q9967